=== PATIENT | male | born 1975 | race Two or more races ===

== ENCOUNTER 2020-11-06 12:04 | Emergency (ER) | payer SELFPAY ==
[2020-11-06 12:24] VITALS: BP 122/74; PULSE 93; TEMP 98.4; BMI 25.7
[2020-11-06] MEDS ORDERED: AZITHROMYCIN 500 MG TABLET PO ONE (15:45)
== END 2020-11-06 15:49 | disposition home or self-care (01) ==
LOC: JER 12:04
DX: U07.1 COVID-19 (principal); J12.82 Pneumonia due to coronavirus disease 2019
CPT/HCPCS: 71045-TC-FY; 99284-25; C9803; U0003; U0005